=== PATIENT | male | born 1980 ===

== ENCOUNTER → 2018-04-19 | Day surgery (SDC) | payer BC ==
[2018-04-18 11:45] VITALS: Ht 175.3 cm; Wt 79.5 kg
[~2018-04-19] VITALS: Ht 175.3 cm; Wt 79.5 kg
[~2018-04-19] MED LIST: ATROPINE SULFATE 0.1 MG/ML 5ML SYR IV PRN; BUPIVACAINE/EPINEPHRINE 0.5% MPF 1:200,000 30 ML VIAL ONE; CEFAZOLIN 1000MG IV PUSH 7.5 ML IV SCH; DEXAMETHASONE SOD INJ 4 MG/ML VIAL ONE; EpHEDrine SULFATE INJ 50 MG/ML AMP IV PRN; FENTANYL CITRATE INJ 50 MCG/1 ML 2 ML VIAL IV PRN; FENTANYL CITRATE INJ 50 MCG/1 ML 2 ML VIAL ONE; KETOROLAC TROMETHAMINE 30 MG/ML VIAL ONE; LACTATED RINGER'S 1000ML 1,000 ML IV SCH; LIDOCAINE HCL 2% 2 ML VIAL (20MG/ML) ONE; MIDAZOLAM HCL 1 MG/ML 2ML VIAL ONE; ONDANSETRON INJ 2 MG/ML 2 ML VIAL IV PRN; ONDANSETRON INJ 2 MG/ML 2 ML VIAL ONE; OXYCODONE/ACETAMINOPHEN 5-325 TAB PO PRN; PATIENT'S ALLERGY INFO NEEDS ENTERED SCH; PATIENT'S HEIGHT AND/OR WEIGHT NEEDED SCH; PROPOFOL IV EMULSION 10 MG/ML 20 ML VIAL ONE; SODIUM CHLORIDE 0.9% 1000ML 1,000 ML IV SCH
--- NOTE | 2018-04-19 08:42 | History & Physical Bridge - [place] ---
H&P Re-Evaluation Bridge Note: I have examined the patient, reviewed the History & Physical and in the interval since the performance of the History & Physical I have noted the following changes of clinical significance: No changes noted
--- NOTE | 2018-04-19 10:03 | [facility] Post Operative Brief Note ---
Immediate Operative Summary Operative Date Apr 19, 2018. Pre-Operative Diagnosis Painful Hardware After Left Ankle S/P ORIF Ankle Fracture Post-Operative Diagnosis Same Procedure(s) Performed Left Ankle Hardware Removal Surgeon Dr. Moore Pilot Plant Technician Surgeon(s) Carson Najera PA-C Estimated Blood Loss Minimal Findings Consistent with Post-Op Diagnosis Specimens None Drains None Anesthesia Type General Complication(s) none Disposition Accompanied Pt To Recovery: no Disposition: Recovery Room / PACU
--- NOTE | 2018-04-19 10:08 | Discharge Instructions-SurgCtr ---
Discharge Instructions Date of Service Apr 19, 2018. Visit Reason for Visit: Left Ankle Painful Hardware Discharge Discharge Diagnosis / Problem: SAME ABOVE Discharge Goals Goal(s): Decrease discomfort, Improve function Activity Recommendations Activity Limitations: as noted below Lifting Limitations: gradually increase as tolerated Exercise/Sports Limitations: until after follow-up appointment Shower/Bathe: may shower/bathe in 3 days Weightbearing Status: Left weightbearing (as tolerated) Anesthesia . Post Anesthesia Instructions: If you have had General Anesthesia or IV Sedation: * Do not drive today. * Resume driving when surgeon permits. * Do not make important decisions or sign legal documents today. * Call surgeon for: 1. Temperature elevations greater than 101 degrees F. 2. Uncontrollable pain. 3. Excessive bleeding. 4. Persistent nausea and vomiting. 5. Medication intolerance (nausea, vomiting or rash). * For nausea and vomiting use only clear liquids such as: tea, soda, bouillon until nausea subsides, then gradually increase diet as tolerated. * If you have any concerns or questions, call your surgeon's office. If physician is unavailable and it is an emergency, call 911 or go to the nearest emergency room. . Instructions / Follow-Up Instructions / Follow-Up MEDICATIONS: * Resume previous medications unless instructed otherwise by your surgeon. * Always take pain medication on a full stomach or with food to avoid upset stomach. * Do not drink alcohol or drive while taking narcotics. * Ibuprofen or Tylenol may be taken if narcotic not needed. SPECIAL CARE INSTRUCTIONS: __ None _X_ Keep extremity elevated and iced x 48 hours; apply ice 20-30 minutes 8-10 times/day. May remove at night. __ Crutches __ May discard when able __ Brace/Post-op shoe __ 24 hrs/day __ Remove at night _X_ Dressing __ Maintain until seen in office, may shower with plastic over site _X_ Remove dressings in 24-48 hours and then may shower _X_ Cover incisions with band-aids after showering __ Do not remove steri-strips Call physician if chills or temperature rises above 102 degrees or pain unrelieved by prescribed pain medications. Office [phone] Diet Recommendations Home Diet: resume previous diet Procedures Procedures Performed: Left Ankle Hardware Removal Pending Studies Studies pending at discharge: no Medical Emergencies . Who to Call and When: Medical Emergencies: If at any time you feel your situation is an emergency, please call 911 immediately. . Non-Emergent Contact Non-Emergency issues call your: Primary Care Provider . . "Provider Documentation" section prepared by Holden Najera. .
--- NOTE | 2018-04-19 10:27 | Anesthesia Progress Nt - [facility] ---
Anesthesia Post Op Note Date & Time Apr 19, 2018 at 10:26 Vital Signs Pain Intensity: 0 Vital Signs Past 12 Hours Date Time Temp Pulse Resp B/P (MAP) Pulse Ox O2 Delivery O2 Flow Rate FiO2 04/19/18 10:22 72 16 100 04/19/18 10:22 72 16 04/19/18 10:21 74 19 04/19/18 10:21 70 19 126/77 100 04/19/18 10:17 140/74 04/19/18 10:16 83 22 100 04/19/18 10:16 81 22 04/19/18 10:11 81 12 04/19/18 10:11 84 12 133/66 100 04/19/18 10:08 136/68 04/19/18 10:06 36.3 90 20 136/68 100 Mask 8 04/19/18 08:03 37. 52 16 121/79 (93) 100 Room Air Notes Mental Status: alert / awake / arousable, participated in evaluation Pt Amnestic to Procedure: Yes Nausea / Vomiting: adequately controlled Pain: adequately controlled Airway Patency, RR, SpO2: stable & adequate BP & HR: stable & adequate Hydration State: stable & adequate Anesthetic Complications: no major complications apparent
[2018-04-19 10:39] VITALS: TEMP 36.3
[2018-04-19 11:05] VITALS: BP 127/74; PULSE 67; O2SAT 98
--- NOTE | 2018-04-19 12:17 | OPERATIVE REPORT ---
DATE OF OPERATION: 04/19/2018 SURGEON: Nba Moore MD COMBINATION MACHINE TOOL OPERATOR: Holden Najera PA-C. PREOPERATIVE DIAGNOSIS: Symptomatic hardware, left ankle, status post ORIF left ankle fracture. POSTOPERATIVE DIAGNOSIS: Symptomatic hardware, left ankle, status post ORIF left ankle fracture. PROCEDURE PERFORMED: Left ankle hardware removal. COMPLICATIONS: None. ESTIMATED BLOOD LOSS: Minimal. TOURNIQUET TIME: 11 minutes at 300 mmHg. ANESTHESIA: General. SPECIMENS: None. OPERATIVE INDICATIONS: The patient is a 37-year-old male who is 2 years out from ORIF of left ankle fracture done elsewhere. He has a very thin soft tissue envelope and some screws were angled in the distal aspect and were giving him problems over the lateral malleolus. He elected to proceed with hardware removal. The fracture was healed. He was having no symptoms other than the symptoms related to the hardware. OPERATIVE PROCEDURE: The patient was taken to the operating room, identified and placed on the operative table in supine position. All contact areas were appropriately padded. IV antibiotics were provided by anesthesia team. General anesthetic was implemented by anesthesia team. A left thigh tourniquet was then placed. The left leg was prepped and draped in usual sterile fashion. I first injected locally with 10 mL of 0.5% Marcaine with epinephrine proximal to the incision site. The left leg was then elevated and exsanguinated with Esmarch and tourniquet was placed at 300 mmHg. Direct approach to the fibula was then performed using the previous incision. It was a little posterior, so I had to pull it anteriorly and made an incision directly over the fibula. Sharp dissection was carried through subcutaneous tissue directly down to the plate. I cleaned the plate of all soft tissue. I then removed all 6 screws without difficulty. I then removed the plate without difficulty. I used a rongeur to debride some of the scar tissue that formed around the holes and around the plate. I then injected locally with an additional 20 mL of 0.5% Marcaine with epinephrine. We did irrigate and then the tourniquet was let down for a tourniquet time of 11 minutes. Hemostasis was assured using electrocautery. The fibrous tissue over the plate area was closed with 3-0 Vicryl suture in a [id number] fashion. The subcutaneous tissues then closed with 3-0 Vicryl suture in a buried interrupted fashion. Skin was closed with 3-0 nylon suture. The leg was then cleaned and dried. Sterile dressing of Xeroform, 4 x 4, sterile cast padding and Beny bandage were applied. The patient then brought out of general anesthesia and transferred to the recovery room in stable condition. The patient tolerated the procedure well with no complication. All needle and sponge counts were correct at the end of the operation. I attest to the content of the Intraoperative Record and any orders documented therein. Any exception s are noted below.
== END | disposition home or self-care (01) ==
LOC: X.SURG 07:56
PROVIDERS: ATTEND Orthopaedic Surgery Sports Medicine
DX: T84.84XA Pain due to internal orthopedic prosthetic devices, implants and grafts, initial encounter (principal); Y79.2 Prosthetic and other implants, materials and accessory orthopedic devices associated with adverse incidents